=== PATIENT | male | born 1950 ===

== ENCOUNTER 2017-01-26 10:39 | Emergency (ER) | payer OTHER ==
[2017-01-26 10:43] VITALS: BP 115/73; PULSE 87; RESP 20; TEMP 97.8; O2SAT 97; BMI 31.3
[2017-01-26] MEDS ORDERED: Oxycodone/Acetaminophen 5/325 mg Tab PO STA (11:23)
--- NOTE | 2017-01-26 11:30 | ED PDOC ---
Lower Extremity Pain/Injury Time Seen by Provider: 01/26/17 11:02 Chief Complaint (Nursing): Lower Extremity Problem/Injury Chief Complaint (Provider): Knee pain History Per: Patient Additional Complaint(s): 66 yo male, PMH of Athritis, HTN and High Cholesterol, presents to ED with complaints of left knee pain x 1 year now, severe and constant over the last week. Taking Tylenol without relief. Past Medical History Reviewed: Nursing Documentation, Vital Signs Vital Signs: Last Vital Signs Temp 97.8 F 01/26/17 10:42 Pulse 87 01/26/17 10:42 Resp 20 01/26/17 10:42 BP 115/73 01/26/17 10:42 Pulse Ox 97 01/26/17 10:42 - Medical History PMH: Arthritis, HTN, Hypercholesterolemia Denies: HIV, Chronic Kidney Disease - Surgical History Surgical History: Appendectomy - Family History Family History: States: Unknown Family Hx - Living Arrangements Living Arrangements: With Family - Home Medications Home Medications: Ambulatory Orders Medication Instructions Recorded Gemfibrozil [Lopid] 600 mg PO DAILY 04/13/16 Losartan/Hydrochlorothiazide 12.5 - 50 mg PO DAILY 04/13/16 [Losartan-Hctz 50-12.5 mg Tab] Omeprazole [Prilosec] 40 mg PO DAILY 04/13/16 traMADol [Ultram] 50 mg PO Q4 PRN 04/13/16 Naproxen 500 mg PO Q12 PRN #30 tab 04/15/16 oxyCODONE/Acetaminophen [Percocet 1 tab PO Q6 PRN #20 tab 04/15/16 5/325 mg Tab] traMADol [Ultram] 50 mg PO Q4 #20 tab 01/26/17 - Allergies Allergies/Adverse Reactions: Allergies Allergy/AdvReac Type Severity Reaction Status Date / Time lisinopril Allergy COUGH Verified 03/07/16 13:05 Review of Systems ROS Statement: Except As Marked, All Systems Reviewed And Found Negative Musculoskeletal: Positive for: Other (knee pain) Physical Exam - Reviewed Nursing Documentation Reviewed: Yes Vital Signs Reviewed: Yes - Physical Exam Appears: Positive for: Well, Non-toxic, No Acute Distress Head Exam: Positive for: ATRAUMATIC, NORMAL INSPECTION, NORMOCEPHALIC Skin: Positive for: Normal Color, Warm, DRY Eye Exam: Positive for: EOMI, Normal appearance, PERRL ENT: Positive for: Normal ENT Inspection Neck: Positive for: Normal, Painless ROM Cardiovascular/Chest: Positive for: Regular Rate, Rhythm Respiratory: Positive for: CNT, Normal Breath Sounds Gastrointestinal/Abdominal: Positive for: Normal Exam, Bowel Sounds, Soft Back: Positive for: Normal Inspection Extremity: Positive for: Other (limited Flexion due to pain, (+) crepitus). Negative for: Tenderness, Deformity, Swelling Neurologic/Psych: Positive for: Alert, Oriented - ECG O2 Sat by Pulse Oximetry: 97 Medical Decision Making Medical Decision Making: Knee XR: DJD, (+) Calcific tendonitis, NAD, as read by AMBROCIO Results discussed with Pt using video tractor mechanic helper 1932. Pt demonstrated full understanding Given ortho follow up and instructed in RICE therapy Disposition - Clinical Impression Clinical Impression: Knee pain, Tendonitis - Patient ED Disposition Is Patient to be Admitted: No - Disposition Referrals: Dionicio Cohn MD [Staff Provider] - [facility] [Outside] Disposition: Routine/Home Disposition Time: 12:53 Condition: STABLE Prescriptions: traMADol [Ultram] 50 mg PO Q4 #20 tab Instructions: Knee Pain (ED), Tendinitis (ED) Print Language: ALBANIAN
[2017-01-26] MEDS ORDERED: Oxycodone/Acetaminophen 5/325 mg Tab ONE (11:34)
--- NOTE | 2017-01-26 12:39 | RAD ---
PROCEDURE: Left Knee Radiographs. Jump HISTORY: Pain. COMPARISON: 04/13/2016 FINDINGS: BONES: Bone alignment and mineralization are normal. There is no acute fracture. There are dorsal patellar spurs. JOINTS: There is mild tricompartmental degenerative osteoarthrosis with mild reduced joint spaces and marginal spurring, worse in the medial compartment. JOINT EFFUSION: There is a small suprapatellar joint effusion OTHER FINDINGS: None. IMPRESSION: Mild tricompartmental degenerative osteoarthrosis, worse in the medial compartment. Small suprapatellar joint effusion.
== END 2017-01-26 13:00 | disposition home or self-care (01) ==
LOC: H.ER 10:39
DX: M77.9 Enthesopathy, unspecified (principal); E78.00 Pure hypercholesterolemia, unspecified; I10 Essential (primary) hypertension

== ENCOUNTER 2018-05-08 17:14 | Emergency (ER) | payer SELFPAY ==
[2018-05-08 17:15] VITALS: BMI 31.3
[2018-05-08] MEDS ORDERED: Sodium Chloride 0.9% 1,000 ML IV STA (17:48)
[2018-05-08] MEDS ORDERED: Morphine 4 MG/ML VIAL ONE (17:54)
[2018-05-08] MEDS ORDERED: Morphine 4 MG/ML VIAL IVP STA (18:02)
[2018-05-08 18:15] LABS: SQUAMOUS EPITHIAL < 1 /hpf (0-5); URINE BILIRUBIN NEGATIVE (NEGATIVE); URINE BLOOD LARGE (NEGATIVE); URINE CLARITY CLOUDY (Clear); URINE COLOR AMBER (YELLOW); URINE GLUCOSE (UA) NEG (Normal); URINE LEUKOCYTE ESTERASE NEG Leu/uL (Negative); URINE PROTEIN 30 mg/dL (NEGATIVE); URINE UROBILINOGEN 0.2-1.0 mg/dL (0.2-1.0)
[2018-05-08 18:17] LABS: BASO # 0.1 K/uL (0.0-0.2); BASO % 0.8 % (0.0-2.0); EOS # 0.3 K/uL (0.0-0.7); EOS % 4.1 % (0.0-4.0); HEMOGLOBIN 13.3 g/dL (12.0-18.0); LYMPH % 26.1 % (20.0-40.0); MEAN CORPUSCULAR HEMOGLOBIN 31.3 pg (27.0-31.0); MEAN CORPUSCULAR HGB CONC 34.4 g/dL (33.0-37.0); MONO # 0.6 K/uL (0.0-0.8); MONO % 7.5 % (0.0-10.0); NEUT # 4.8 K/uL (1.8-7.0); NEUT % 61.5 % (50.0-75.0); RBC 4.24 Mil/uL (4.40-5.90); RED CELL DISTRIBUTION WIDTH 12.9 % (11.5-14.5); WHITE BLOOD COUNT 7.8 K/uL (4.8-10.8)
--- NOTE | 2018-05-08 18:21 | ED PDOC ---
HPI: Abdomen Time Seen by Provider: 05/08/18 17:35 Chief Complaint (Nursing): Abdominal Pain Chief Complaint (Provider): Right Flank Pain History Per: Patient History/Exam Limitations: no limitations Onset/Duration Of Symptoms: Days (x1) Current Symptoms Are (Timing): Still Present Additional Complaint(s): 67 y/o male with a PMHx of arthritis, HTN, and hypercholesterolemia, presenting for evaluation of right flank pain x1 day. Patient states his pain began around 15:00 today, radiates to the RLQ, and is associated with dysuria. He reports his symptoms are similar to previous episodes of kidney stones. Patient states he has had surgery in the past for kidney stones, but has recently been able to pass stones without any issues. He reports nausea and non-bilious, non-bloody vomiting. He denies any fever, chills, diarrhea, or hematuria. PMD: [facility] Past Medical History Reviewed: Historical Data, Nursing Documentation, Vital Signs Vital Signs: Last Vital Signs Temp 98.6 F 05/08/18 20:46 Pulse 71 05/08/18 20:46 Resp 18 05/08/18 20:46 BP 112/77 05/08/18 20:46 Pulse Ox 96 05/08/18 20:46 - Medical History PMH: Arthritis, HTN, Hypercholesterolemia Denies: HIV, Chronic Kidney Disease - Surgical History Surgical History: Appendectomy - Family History Family History: States: Unknown Family Hx - Social History Current smoker - smoking cessation education provided: No Alcohol: None Drugs: Denies - Home Medications Home Medications: Ambulatory Orders Medication Instructions Recorded Gemfibrozil [Lopid] 600 mg PO DAILY 04/13/16 Losartan/Hydrochlorothiazide 12.5 - 50 mg PO DAILY 04/13/16 [Losartan-Hctz 50-12.5 mg Tab] Omeprazole [Prilosec] 40 mg PO DAILY 04/13/16 traMADol [Ultram] 50 mg PO Q4 PRN 04/13/16 Naproxen 500 mg PO Q12 PRN #30 tab 04/15/16 oxyCODONE/Acetaminophen [Percocet 1 tab PO Q6 PRN #20 tab 04/15/16 5/325 mg Tab] traMADol [Ultram] 50 mg PO Q4 #20 tab 01/26/17 Acetaminophen [Tylenol Extra 1,000 mg PO Q6 PRN #100 tablet 05/08/18 Strength] Ciprofloxacin [Cipro] 1 tab PO BID #14 tab 05/08/18 Omeprazole Magnesium [Prilosec Otc] 20 mg PO DAILY #30 tcp 05/08/18 Tamsulosin [Flomax] 0.4 mg PO DAILY #14 cap 05/08/18 - Allergies Allergies/Adverse Reactions: Allergies Allergy/AdvReac Type Severity Reaction Status Date / Time lisinopril Allergy COUGH Verified 03/07/16 13:05 Review of Systems ROS Statement: Except As Marked, All Systems Reviewed And Found Negative Constitutional: Negative for: Fever, Chills Gastrointestinal: Positive for: Nausea, Vomiting, Abdominal Pain, Other (Right Flank Pain). Negative for: Diarrhea Genitourinary Male: Positive for: Dysuria. Negative for: Hematuria Physical Exam - Reviewed Nursing Documentation Reviewed: Yes Vital Signs Reviewed: Yes - Physical Exam Appears: Positive for: Uncomfortable, In Acute Distress (painful distress) Head Exam: Positive for: ATRAUMATIC, NORMOCEPHALIC Skin: Positive for: Warm, Dry Eye Exam: Positive for: EOMI, PERRL ENT: Negative for: Pharyngeal Erythema, Tonsillar Exudate Neck: Positive for: Painless ROM, Supple Cardiovascular/Chest: Positive for: Regular Rate, Rhythm. Negative for: Murmur Respiratory: Positive for: Normal Breath Sounds. Negative for: Respiratory Distress Gastrointestinal/Abdominal: Positive for: Soft, Tenderness (RUQ, RLQ, and superpubic area tender to palpation). Negative for: Mass, Guarding, Rebound Back: Positive for: R CVA Tenderness. Negative for: Vertebral Tenderness Extremity: Positive for: Normal ROM. Negative for: Deformity Neurologic/Psych: Positive for: Alert, Mood/Affect (mildly anxious affect). Negative for: Motor/Sensory Deficits - Laboratory Results Result Diagrams: 05/08/18 18:20 05/08/18 18:06 - ECG O2 Sat by Pulse Oximetry: 100 (RA) Pulse Ox Interpretation: Normal Medical Decision Making Medical Decision Makin:47 Impression: Right flank pain. Differential diagnoses include, but are not limited to renal colic, pyelonephritis, AAA, and colitis. Plan: -CT Abdomen and Pelvis -CMP -CBC -Lact acid, plasma -Maalox 30ml PO -Pepcid 20mg PO -Morphine 4mg IVP -1LNS -Zofran 8mg IV -Blood culture -Urine culture -IV insertion -Urinalysis -Reevaluation Accession No. : [id number] Patient Name / ID : AGNES DARLING / [id number] Exam Date : 05/08/2018 18:17:46 ( Approved ) Study Comment : Sex / Age : M / 67Y Creator : Benji Verde MD Dictator : Benji Verde MD Assembler Convertible Top : Skilled Laborer : Benji Verde MD Approver2 : Report Date : 05/08/2018 18:49:56 My Comment : Date of service: 05/08/2018 PROCEDURE: CT Abdomen and Pelvis without intravenous contrast HISTORY: RIGHT flank pain COMPARISON: None. TECHNIQUE: Contiguous images were obtained from the domes of the diaphragms to the upper thighs without the administration of intravenous contrast. Oral contrast was not administered. Radiation dose: Total exam DLP = 728.7 mGy-cm. This CT exam was performed using one or more of the following dose reduction techniques: Automated exposure control, adjustment of the mA and/or kV according to patient size, and/or use of iterative reconstruction technique. FINDINGS: LOWER THORAX: Unremarkable. LIVER: Diffuse hepatic steatosis. No gross lesion or ductal dilatation. GALLBLADDER AND BILE DUCTS: Unremarkable. PANCREAS: Unremarkable. No gross lesion or ductal dilatation. SPLEEN: Unremarkable. ADRENALS: Unremarkable. No mass. KIDNEYS AND URETERS: Horseshoe kidney. Tiny nonobstructive right interpolar, left upper, left interpolar and left lower pole calculi. Left interpolar calculus measures 6 x 3 mm. Mild distension of the right collecting system and ureter. No solid mass. VASCULATURE: Unremarkable. No aortic aneurysm. BOWEL: Unremarkable. No obstruction. No gross mural thickening. APPENDIX: Unremarkable. Normal appendix. PERITONEUM: Small fat containing left inguinal hernia. No free fluid. No free air. LYMPH NODES: Unremarkable. No enlarged lymph nodes. BLADDER: 5 x 4 mm calculus in the dependent bladder. REPRODUCTIVE: Prostatomegaly. BONES: No acute fracture. Multilevel spinal degenerative changes. OTHER FINDINGS: None. IMPRESSION: Horseshoe kidney. Nonobstructive bilateral renal calculi. Mild distention of the renal collecting system and ureter. 5 x 4 mm calculus in the dependent bladder, likely recently passed from the right genitourinary tract. 1820 Pt feels much better. DW pt findings and plan of care. Cipro, flomax, pain meds, Urology follow up. Scribe Attestation: Documented by Mukund Ulrich, acting as a scribe for Robert Pollock MD. Provider Scribe Attestation: All medical record entries made by the Scribe were at my direction and personally dictated by me. I have reviewed the chart and agree that the record accurately reflects my personal performance of the history, physical exam, medical decision making, and the department course for this patient. I have also personally directed, reviewed, and agree with the discharge instructions and disposition. Disposition - Clinical Impression Clinical Impression: Renal colic - Disposition Referrals: Clifford Manzanares MD [Staff Provider] - 05/09/18 (LLAME A LA OFICINA POR LA MANANA A HACER MELODY MICHAEL EN 2-3 [facility] Disposition: Routine/Home Disposition Time: 18:20 Condition: IMPROVED Prescriptions: Acetaminophen [Tylenol Extra Strength] 1,000 mg PO Q6 PRN #100 tablet PRN Reason: FEVER OR PAIN Ciprofloxacin [Cipro] 1 tab PO BID #14 tab Omeprazole Magnesium [Prilosec Otc] 20 mg PO DAILY #30 tcp Tamsulosin [Flomax] 0.4 mg PO DAILY #14 cap Instructions: Renal Colic Forms: [facility] (Thai) Print Language: [place] ISLANDER
[2018-05-08] MEDS ORDERED: Alum-Mag Hydrox-Simethicone Susp (30 mL) PO STA (18:25)
[2018-05-08] MEDS ORDERED: Alum-Mag Hydrox-Simethicone Susp (30 mL) ONE (18:32)
[2018-05-08 18:36] LABS: ALB/GLOB RATIO 1.5 (1.0-2.1); ALBUMIN 4.6 g/dL (3.5-5.0); ALT/SGPT 48 U/L (21-72); AST/SGOT 54 U/L (17-59); BLOOD UREA NITROGEN 21 mg/dl (9-20); CALCIUM 9.7 mg/dL (8.4-10.2); GFR NON-AFRICAN AMERICAN > 60
--- NOTE | 2018-05-08 18:51 | CT ---
Date of service: 05/08/2018 PROCEDURE: CT Abdomen and Pelvis without intravenous contrast HISTORY: RIGHT flank pain COMPARISON: None. TECHNIQUE: Contiguous images were obtained from the domes of the diaphragms to the upper thighs without the administration of intravenous contrast. Oral contrast was not administered. Radiation dose: Total exam DLP = 728.7 mGy-cm. This CT exam was performed using one or more of the following dose reduction techniques: Automated exposure control, adjustment of the mA and/or kV according to patient size, and/or use of iterative reconstruction technique. FINDINGS: LOWER THORAX: Unremarkable. LIVER: Diffuse hepatic steatosis. No gross lesion or ductal dilatation. GALLBLADDER AND BILE DUCTS: Unremarkable. PANCREAS: Unremarkable. No gross lesion or ductal dilatation. SPLEEN: Unremarkable. ADRENALS: Unremarkable. No mass. KIDNEYS AND URETERS: Horseshoe kidney. Tiny nonobstructive right interpolar, left upper, left interpolar and left lower pole calculi. Left interpolar calculus measures 6 x 3 mm. Mild distension of the right collecting system and ureter. No solid mass. VASCULATURE: Unremarkable. No aortic aneurysm. BOWEL: Unremarkable. No obstruction. No gross mural thickening. APPENDIX: Unremarkable. Normal appendix. PERITONEUM: Small fat containing left inguinal hernia. No free fluid. No free air. LYMPH NODES: Unremarkable. No enlarged lymph nodes. BLADDER: 5 x 4 mm calculus in the dependent bladder. REPRODUCTIVE: Prostatomegaly. BONES: No acute fracture. Multilevel spinal degenerative changes. OTHER FINDINGS: None. IMPRESSION: Horseshoe kidney. Nonobstructive bilateral renal calculi. Mild distention of the renal collecting system and ureter. 5 x 4 mm calculus in the dependent bladder, likely recently passed from the right genitourinary tract.
[2018-05-08] MEDS ORDERED: Ciprofloxacin 400mg/200ml D5W 400 MG/200 ML BAG IV STA (19:05)
[2018-05-08] MEDS ORDERED: Ciprofloxacin 400mg/200ml D5W 400 MG/200 ML BAG IVPB ONE (19:25)
[2018-05-08 19:38] VITALS: RESP 18
[2018-05-08 20:36] VITALS: BP 112/77; PULSE 71; TEMP 98.6
[2018-05-09 15:27] VITALS: O2SAT 100
== END 2018-05-08 20:50 | disposition home or self-care (01) ==
LOC: H.ER 17:14
DX: N20.0 Calculus of kidney (principal); E78.00 Pure hypercholesterolemia, unspecified; I10 Essential (primary) hypertension; Q63.1 Lobulated, fused and horseshoe kidney
CPT/HCPCS: 74176; 80053; 81003; 83605; 85025; 87040; 87086; 96374; 96375; 99284; J0744; J1885; J2270; J2405; J7030